=== PATIENT | male | born 1980 | race Caucasian/White ===

== ENCOUNTER 2017-12-23 02:17 | Emergency (ER) | payer OTHER ==
[2017-12-23] MEDS: PROPOFOL 200 MG INJ IV (04:55)
[2017-12-23] MEDS: KETAMINE 500 MG INJ IV (04:56)
[2017-12-23] MEDS: KETOROLAC 60 MG INJ IM (04:56)
== END 2017-12-23 07:27 | disposition home or self-care (01) ==
LOC: E/R 02:17
DX: L03.113 Cellulitis of right upper limb (principal); F17.210 Nicotine dependence, cigarettes, uncomplicated
CPT/HCPCS: 23650; 73030-RT; 96372; 99285-25